=== PATIENT | male | born 1940 | race Caucasian/White ===

== ENCOUNTER → 2017-02-24 | Outpatient (REF) ==
[~2017-02-24] MED LIST: ASPIRIN 32325 MG/TAB PO; COLACE 100100 MG/CAP PO; LEVAQUIN 750MG750 M1 PO; LIPITOR 10MG10 MG PO; NORCO 325 MG-51 TAB PO; SYNTHROID0.05 MG/TA PO
[2017-02-24 17:29] LABS: THYROID STIMULATING HORMONE 1.97 uIU/mL (0.465-4.680)
[2017-02-24 17:47] LABS: PSA-TOTAL 0.9 ng/mL (0-4)
== END ==
LOC: ZLAB.WCH 15:10
PROVIDERS: Internal Medicine
DX: Z01.89 Encounter for other specified special examinations (principal)
CPT/HCPCS: G0103

== ENCOUNTER 2017-07-06 17:01 | Inpatient (IN) | payer OTHER, MEDICARE, BC ==
[~2017-07-06] VITALS: Ht 188 cm; Wt 67.2 kg
[~2017-07-06 17:01] MED LIST changes: -ASPIRIN 32325 MG/TAB PO; -COLACE 100100 MG/CAP PO; -LEVAQUIN 750MG750 M1 PO; -NORCO 325 MG-51 TAB PO; -SYNTHROID0.05 MG/TA PO
[2017-07-06] MEDS ORDERED: SYNTHROID0.05 MG/TA PO (17:11)
[2017-07-06 17:50] LABS: BASO % 0.2 % (0.0-2.0); EOS # 0.1 (0.0-0.7); GRAN # 4.8 (1.4-6.5); GRAN % 72.7 % (42.2-75.2); HEMOGLOBIN 12.5 g/dl (13.5-18.0); LYMPH # 1.2 (1.2-3.4); LYMPH % 17.5 % (20.0-51.0); MEAN CELL VOLUME 96 fl (80.0-100.0); MEAN CORPUSCULAR HEMOGLOBIN 33 pg (27.0-31.0); MEAN CORPUSCULAR HGB CONC 34 g/dl (33.0-37.0); MEAN PLATELET VOLUME 11.7 fl (7.4-10.4); MONO # 0.4 (0.1-0.6); MONO % 6.4 % (1.7-9.3); PLATELET COUNT 124 K/mm3 (130-400); REDCELL DISTRIBUTION WIDTH-CV 12.4 % (11.5-14.5); WHITE BLOOD COUNT 6.6 K/mm3 (4.8-10.8)
[2017-07-06 17:53] LABS: HEMATOCRIT 36.3 % (42.0-52.0)
[2017-07-06 18:06] LABS: ADJUSTED CALCIUM 9.4 mg/dL (8.4-10.2); ALBUMIN 4.1 gm/dL (3.5-5.0); CALCIUM 9.5 mg/dL (8.4-10.2); CREATININE, serum 0.92 mg/dL (0.66-1.25); POTASSIUM 4.1 mmol/L (3.4-5.0)
[2017-07-06 18:12] LABS: INR 1.1 (0.8-3.0); PROTHROMBIN TIME 12.2 SECONDS (9.7-12.8)
[2017-07-06 21:28] VITALS: BP 118/50; PULSE 60; TEMP 97.4
[2017-07-07] VITALS (10 sets, daily range): BP systolic 93–140; BP diastolic 48–73; PULSE 51–70; TEMP 97.6–99.5
[2017-07-07 06:28] LABS: MEAN CELL VOLUME 97 fl (80.0-100.0); MEAN CORPUSCULAR HGB CONC 33 g/dl (33.0-37.0); MEAN PLATELET VOLUME 11.6 fl (7.4-10.4); PLATELET COUNT 98 K/mm3 (130-400); RED BLOOD COUNT 3.29 M/mm3 (4.20-5.60); REDCELL DISTRIBUTION WIDTH-CV 12.6 % (11.5-14.5); WHITE BLOOD COUNT 18.5 K/mm3 (4.8-10.8)
[2017-07-07 06:32] LABS: HEMATOCRIT 31.9 % (42.0-52.0); HEMOGLOBIN 10.6 g/dl (13.5-18.0); MEAN CORPUSCULAR HEMOGLOBIN 32 pg (27.0-31.0)
[2017-07-07 06:33] LABS: ADD PATHOLOGY DIFF REVIEW NO
[2017-07-07 06:42] LABS: CREATININE, serum 0.9 mg/dL (0.66-1.25); POTASSIUM 4.9 mmol/L (3.4-5.0)
[2017-07-07 06:57] LABS: BAND 24 % (0-10); METAMYELOCYTE 2 % (0-0); MYELOCYTE 1 % (0-0); NEUTROPHILS 67 % (42.0-75.2); TOTAL CELLS COUNTED 100
[2017-07-07 06:58] LABS: PLATELET ESTIMATE DECREASED (NORMAL)
[2017-07-08 02:19] VITALS: BP 104/51; PULSE 56; TEMP 98.2
[2017-07-08 05:06] LABS: HEMATOCRIT 25.3 % (42.0-52.0); HEMOGLOBIN 8.5 g/dl (13.5-18.0)
[2017-07-08 06:00] VITALS: BP 112/48; PULSE 53; TEMP 97.7
[2017-07-08 09:53] VITALS: BP 106/54; PULSE 51; TEMP 97.9
[2017-07-08 14:32] VITALS: BP 117/56; PULSE 54; TEMP 97.9
[2017-07-08 18:08] VITALS: BP 107/50; PULSE 76
[2017-07-08 21:12] VITALS: BP 99/51; PULSE 55; TEMP 98.1
[2017-07-09 01:46] VITALS: BP 111/45; PULSE 55; TEMP 97.9
[2017-07-09 06:21] VITALS: BP 103/80; PULSE 56; TEMP 98.1
[2017-07-09 07:04] LABS: HEMATOCRIT 24.3 % (42.0-52.0); HEMOGLOBIN 8.2 g/dl (13.5-18.0)
[2017-07-09 09:30] VITALS: BP 104/54; PULSE 53; TEMP 97.9
[2017-07-09 13:38] VITALS: BP 112/50; PULSE 53; TEMP 98.4
[2017-07-09 18:50] VITALS: BP 132/63; PULSE 65; TEMP 98.1
[2017-07-09 21:12] VITALS: BP 114/55; PULSE 57; TEMP 98.4
[2017-07-10 03:59] VITALS: BP 130/61; PULSE 59; TEMP 97.5
[2017-07-10 11:23] VITALS: BP 109/48; PULSE 56; TEMP 98.6
[2017-07-10 12:33] LABS: HEMATOCRIT 22.7 % (42.0-52.0); HEMOGLOBIN 7.7 g/dl (13.5-18.0)
[2017-07-10 13:46] VITALS: BP 111/58; PULSE 58; TEMP 97.9
[2017-07-10 22:14] VITALS: BP 117/59; PULSE 58; TEMP 98.3
[2017-07-11 01:41] VITALS: BP 115/55; PULSE 57; TEMP 98.6
[2017-07-11 05:09] VITALS: BP 121/55; PULSE 59; TEMP 98.7
[2017-07-11 09:25] VITALS: BP 107/48; PULSE 62; TEMP 98.2
[2017-07-11 11:35] LABS: HEMATOCRIT 20.4 % (42.0-52.0)
[2017-07-11 13:47] VITALS: BP 117/62; PULSE 59; TEMP 98.2
[2017-07-11 17:21] VITALS: BP 120/61; PULSE 65; TEMP 97.8
[2017-07-11 22:12] VITALS: BP 128/63; PULSE 78; TEMP 99.5
[2017-07-12 01:53] VITALS: BP 135/59; PULSE 61; TEMP 98.2
[2017-07-12] MEDS ORDERED: NORCO 325 MG-51 TAB PO (05:49)
[2017-07-12] MEDS ORDERED: LEVAQUIN 750MG750 M1 PO (05:50)
[2017-07-12] MEDS ORDERED: COLACE 100100 MG/CAP PO (05:50)
[2017-07-12 06:01] VITALS: BP 132/61; PULSE 62; TEMP 97.9
[2017-07-12 07:50] LABS: BASO % 0.3 % (0.0-2.0); EOS # 0.4 (0.0-0.7); EOS % 4.9 % (0-4.0); GRAN # 5.2 (1.4-6.5); GRAN % 72.7 % (42.2-75.2); LYMPH # 0.8 (1.2-3.4); LYMPH % 11.6 % (20.0-51.0); MEAN CELL VOLUME 96 fl (80.0-100.0); MEAN CORPUSCULAR HGB CONC 34 g/dl (33.0-37.0); MEAN PLATELET VOLUME 11.4 fl (7.4-10.4); MONO # 0.7 (0.1-0.6); MONO % 9.7 % (1.7-9.3); PLATELET COUNT 120 K/mm3 (130-400); REDCELL DISTRIBUTION WIDTH-CV 12.4 % (11.5-14.5); WHITE BLOOD COUNT 7.2 K/mm3 (4.8-10.8)
[2017-07-12 08:06] LABS: HEMOGLOBIN 7.1 g/dl (13.5-18.0); MEAN CORPUSCULAR HEMOGLOBIN 32 pg (27.0-31.0)
[2017-07-12 10:49] VITALS: BP 119/56; PULSE 65; TEMP 98.5
[2017-07-12] MEDS ORDERED: ASPIRIN 32325 MG/TAB PO (11:29)
[2017-07-12 11:48] VITALS: BP 119/56; PULSE 65; TEMP 98.5
== END 2017-07-12 13:48 | DRG 183 ==
LOC: COL.ER 17:01 → SURG 19:30
PROVIDERS: Emergency Medicine; Surgery
PROC: 0HQ1XZZ Repair Face Skin, External Approach (ICD-10-PCS; principal; 2017-07-06)
DX: S22.21XA Fracture of manubrium, initial encounter for closed fracture (principal); J18.9 Pneumonia, unspecified organism; S82.141A Displaced bicondylar fracture of right tibia, initial encounter for closed fracture; S02.2XXA Fracture of nasal bones, initial encounter for closed fracture; V43.62XA Car passenger injured in collision with other type car in traffic accident, initial encounter; N40.1 Benign prostatic hyperplasia with lower urinary tract symptoms; R33.8 Other retention of urine; S01.421A Laceration with foreign body of right cheek and temporomandibular area, initial encounter; S06.9X0A Unspecified intracranial injury without loss of consciousness, initial encounter
CPT/HCPCS: A9284; J1650; J3010; J7030; L1830

== ENCOUNTER → 2019-01-21 | Outpatient (REF) ==
[~2019-01-21] MED LIST changes: +ASPIRIN 32325 MG/TAB PO; +COLACE 100100 MG/CAP PO; +LEVAQUIN 750MG750 M1 PO; +NORCO 325 MG-51 TAB PO; +SYNTHROID0.05 MG/TA PO
[2019-01-21 16:39] LABS: THYROID STIMULATING HORMONE 2.11 uIU/mL (0.465-4.680)
[2019-01-21 18:52] LABS: PSA-TOTAL 0.47 ng/mL (0-4)
== END ==
LOC: ZLAB.WCH 15:52
PROVIDERS: Internal Medicine
DX: Z01.89 Encounter for other specified special examinations (principal)
CPT/HCPCS: G0103

== ENCOUNTER → 2020-08-16 | Outpatient (CLI) | payer MEDICARE, BC | LOC: COL.RAD 09:10 | DX: Z01.812 Encounter for preprocedural laboratory examination (principal); G62.9 Polyneuropathy, unspecified | CPT/HCPCS: A9585 ==

== ENCOUNTER → 2021-07-30 | Outpatient (CLI) | payer MEDICARE, BC | LOC: COL.RAD 15:15 | DX: T17.920A Food in respiratory tract, part unspecified causing asphyxiation, initial encounter (principal) ==

== ENCOUNTER 2021-10-17 11:00 | Outpatient (RCR) | payer MEDICARE, BC | END 2021-10-23 | disposition home or self-care (01) | LOC: WSST | DX: R13.12 Dysphagia, oropharyngeal phase (principal) ==

== ENCOUNTER 2021-10-24 11:10 | Outpatient (RCR) | payer MEDICARE, BC | END 2021-11-08 | disposition home or self-care (01) | LOC: WSST | DX: R13.12 Dysphagia, oropharyngeal phase (principal) ==

== ENCOUNTER → 2022-06-26 | Outpatient (CLI) | payer MEDICARE, BC | LOC: COL.RAD 12:30 | DX: M50.222 Other cervical disc displacement at C5-C6 level (principal) ==